=== PATIENT | male | born 1995 | race Caucasian/White ===

== ENCOUNTER 2020-04-01 17:47 | Emergency (ER) | payer OTHER, SELFPAY ==
[2020-04-01 17:53] VITALS: BP 126/76; PULSE 66; RESP 14; TEMP 37; O2SAT 98
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
== END 2020-04-01 18:27 | disposition home or self-care (01) ==
PROVIDERS: Emergency Provider Emergency Medicine
DX: S63.502A Unspecified sprain of left wrist, initial encounter (principal); S66.912A Strain of unspecified muscle, fascia and tendon at wrist and hand level, left hand, initial encounter
CPT/HCPCS: 73110; 99283

== ENCOUNTER 2021-07-08 08:55 | Emergency (ER) | payer OTHER, SELFPAY ==
[2021-07-08 09:00] VITALS: BP 126/74; PULSE 85; TEMP 36.6; O2SAT 100
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
[2021-07-08 09:04] VITALS: BMI 25.0
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
[2021-07-08 10:05] VITALS: BP 118/64; PULSE 65; O2SAT 97
== END 2021-07-08 10:05 | disposition home or self-care (01) ==
PROVIDERS: Emergency Provider Emergency Medicine
DX: S93.402A Sprain of unspecified ligament of left ankle, initial encounter (principal); S96.911A Strain of unspecified muscle and tendon at ankle and foot level, right foot, initial encounter; V29.9XXA Motorcycle rider (driver) (passenger) injured in unspecified traffic accident, initial encounter
CPT/HCPCS: 73610; 99281; 99283